=== PATIENT | female | born 1955 | race Caucasian/White ===

== ENCOUNTER 2021-11-27 19:07 | Emergency (ER) | payer MEDICARE ==
[2021-11-27 19:53] VITALS: BP 154/106
[2021-11-27 20:22] LABS: BASO # 0.04 K/mm3 (0.02-0.10); EOS % 2.3 % (1.0-5.0); HEMATOCRIT 37.8 % (37.0-47.0); HEMOGLOBIN 12.6 g/dL (12.5-16.0); LYMPH# 1.94 K/mm3 (1.50-4.00); MEAN CELL VOLUME 98 fl (78-100); MEAN CORPUSCULAR HEMOGLOBIN 33 pg (27-31); MEAN CORPUSCULAR HGB CONC 33 g/dL (33-37); MEAN PLATELET VOLUME 9.1 fl (7.4-10.4); MONO # 0.72 K/mm3 (0.20-0.80); NEU # 5.71 K/mm3 (1.40-6.50); PLATELET COUNT 284 K/mm3 (130-400); RED BLOOD COUNT 3.86 M/mm3 (4.10-5.30); RED CELL DISTRIBUTION WIDTH 12.5 % (11.5-14.5); WHITE BLOOD COUNT 8.6 K/mm3 (4.8-10.8)
[2021-11-27 20:32] LABS: POTASSIUM 3.5 mmol/L (3.5-5.1)
[2021-11-27 20:34] LABS: CALCIUM 8.8 mg/dL (8.3-10.5)
[2021-11-27] MEDS ORDERED: METHOTREXATE2.5 MG PO (20:35)
[2021-11-27] MEDS ORDERED: FOLIC ACID1 MG PO (20:36)
[2021-11-27] MEDS ORDERED: LEVOXYL0.075 MG PO (20:36)
[2021-11-27] MEDS ORDERED: TRAMADOL 50 MG TAB PO (20:36)
[2021-11-27] MEDS ORDERED: ZOFRAN ODT4 MG PO (20:38)
[2021-11-27] MEDS ORDERED: CARAFATE S1 GM/10 ML PO (20:38)
[2021-11-27] MEDS ORDERED: VITAMIN D31250 MC1 PO (20:38)
[2021-11-27] MEDS ORDERED: BENTYL 20MG20 MG/TAB PO (20:39)
[2021-11-27] MEDS ORDERED: IMITREX100 M1 PO (20:42)
[2021-11-27] MEDS ORDERED: ESCITALOPRAM10 MG PO (20:43)
[2021-11-27] MEDS ORDERED: CONSTULOSE10 GM/151 PO (20:43)
[2021-11-27] MEDS ORDERED: PROPRANOLOL HY120 MG PO (20:43)
== END 2021-11-27 21:19 | disposition home or self-care (01) ==
LOC: ED 19:07
PROVIDERS: Family Medicine
DX: K62.3 Rectal prolapse (principal); U07.1 COVID-19; Z73.0 Burn-out